=== PATIENT | male | born 1985 | race Caucasian/White ===

== ENCOUNTER 2016-04-25 20:35 | Emergency (ER) | payer SELFPAY ==
[2016-04-25 20:46] VITALS: BP 135/68; PULSE 83; TEMP 97.9; BMI 31.4
== END 2016-04-25 21:31 | disposition left against medical advice (07) ==
LOC: EDMC 20:35
DX: M79.643 Pain in unspecified hand (principal)
CPT/HCPCS: 99281; 99282